=== PATIENT | female | born 1935 | race African-American/Black ===

== ENCOUNTER 2016-09-01 18:22 | Emergency (ER) | payer OTHER, MEDICARE ==
[~2016-09-01] VITALS: Ht 162.6 cm; Wt 64.9 kg
[2016-09-01] MEDS ORDERED: ACETAMINOPHEN 325 MG TABLET. PO ONE (19:00)
[2016-09-01] MEDS ORDERED: CYCLOBENZAPRINE 10 MG TABLET. PO ONE (19:00)
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
[2016-09-01] MEDS ORDERED: ORPHENADRINE CITRATE 60 MG/2 ML VIAL. IM ONE (19:30)
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
[2016-09-01 20:34] VITALS: BP 153/88
[2016-09-01] MEDS ORDERED: IBUP-1007 PO (20:42)
[2016-09-01] MEDS ORDERED: CYCL10TA2 PO (20:45)
== END 2016-09-01 21:00 | disposition home or self-care (01) ==
LOC: ER 18:22
DX: S16.1XXA Strain of muscle, fascia and tendon at neck level, initial encounter (principal); E78.00 Pure hypercholesterolemia, unspecified; I10 Essential (primary) hypertension; Z88.0 Allergy status to penicillin; V49.49XA Driver injured in collision with other motor vehicles in traffic accident, initial encounter; Y93.89 Activity, other specified; Y92.89 Other specified places as the place of occurrence of the external cause; Y99.8 Other external cause status
CPT/HCPCS: 70450; 72125; 96372; 99284; J2360